=== PATIENT | female | born 1985 | race Caucasian/White ===

== ENCOUNTER 2016-10-17 09:00 | Inpatient (IN) | payer OTHER ==
[~2016-10-17] VITALS: Ht 170.2 cm; Wt 65.3 kg
--- NOTE | ~2016-10-17 | HP ---
Unit #: [id number] #: [id number] Patient: DAGO HAWTHORNE [id number] [facility] [address] [place] [address] [id number] MR#: [id number] NAME: DAGO HAWTHORNE ROOM: [facility] Age: 31 Sex: F Admission Date: 10/17/2016 : 1985 Attending Physician: Ulices Romo M.D. Admitting Physician: Ulices Romo M.D. Primary Care Physician: Generic Doctor Not In System HISTORY AND PHYSICAL HISTORY AND PHYSICAL COMPLETED 10/17/2016. HISTORY OF PRESENT ILLNESS Dago is a 31 female, who is currently transitioning to male. He is admitted for detox from alcohol. PAST MEDICAL HISTORY Gender transition. PAST SURGICAL HISTORY Bilateral mastectomies. SOCIAL HISTORY Smokes one-to-two cigarettes per day, drinks a half of a fifth of alcohol daily, no illegal drug use. He is currently single and living with his girlfriend. FAMILY HISTORY Noncontributory. REVIEW OF SYSTEMS CONSTITUTIONAL: No fever or chills. HEENT: Denies any sore throat, ear pain or runny nose. CARDIOVASCULAR: Denies chest pain, irregular heart rhythm or palpitations. CHEST: Denies shortness of breath or cough. No hemoptysis. GASTROINTESTINAL: Denies nausea, vomiting, diarrhea or chronic constipation. ENDOCRINE: Denies history of increased thirst or urination. No recent significant weight loss or gain. GENITOURINARY: Denies dysuria, frequency, or hematuria. SKIN: Denies any rashes. HEMATOLOGIC: Denies history of increased bleeding or bruising. MUSCULOSKELETAL: Denies any hot, swollen joints. No generalized muscle pain. NEUROLOGIC: Denies problems with vision or speech. No frequent, severe headaches. No numbness, tingling or weakness in any extremities. Denies loss of bladder or bowel control. CURRENT MEDICATIONS None. ALLERGIES Unit #: [id number] #: [id number] Patient: DAGO HAWTHORNE None. PHYSICAL EXAMINATION GENERAL: Alert, oriented, and in no acute distress. VITAL SIGNS: Blood pressure 143/92, heart rate 87, respirations 18, and temperature 98.5. HEIGHT: 5 feet 7 inches. WEIGHT: 144 pounds. SKIN: Warm and dry without rash or lesion. HEENT: Normocephalic. TMs not viewed. Oral and nasal passages clear. Conjunctivae clear. PERRLA. EOMs intact. NECK: Supple without lymphadenopathy or thyromegaly. HEART: Regular rate and rhythm without murmur. LUNGS: Clear. ABDOMEN: Soft, nontender. : Not done. EXTREMITIES: No evidence of cyanosis, clubbing or edema. Moves all without focal deficit. NEUROLOGICAL: Grossly within normal limits. Cranial Nerves: II: Visual aguirre are intact. III, IV AND : Extraocular movements are intact. Pupils are equal, round and reactive to light. V: Facial sensation is grossly normal. VII: Facial movements and expression are normal. VIII: Auditory acuity grossly intact. IX, X: Uvula is midline. Phonation is normal. XI: Patient shrugs shoulders and turns head normally. XII: Tongue protrudes in the midline. Sensory and Motor Function: Sensory and motor sensation is grossly normal. Motor: moves all extremities well. Coordination: Gait is normal. Deep Tendon Reflexes: Intact. IMPRESSION 1. Psychiatric admission. 2. Gender transition. RECOMMENDATIONS Psychiatric, per psychiatrist. MEDICAL No contraindications to participating in facility's activities. MEDICAL PROGNOSIS Good. MEDICAL CONDITION Stable. Dictated by... Simon García/chiqui TD: 10/18/2016 06:10 JOB #: [id number] Unit #: [id number] #: [id number] Patient: DAGO HAWTHORNE HISTORY AND PHYSICAL Page 1 of 1 X VILMA BARRY APRN X HISTORY AND PHYSICAL
--- NOTE | ~2016-10-17 | DS ---
Unit #: [id number] #: [id number] Patient: MALIKA HAWTHORNE [id number] [facility] [address] [place] [address] [id number] I MR#: [id number] NAME: MALIKA HAWTHORNE ROOM: [facility] Age: 31 Sex: F Admission Date: 10/17/2016 : 1985 Discharge Date: 10/18/2016 Attending Physician: Ulices Romo M.D. Primary Care Physician: Generic Doctor Not In System DISCHARGE SUMMARY REASON FOR ADMISSION Alcohol abuse and alcohol withdrawal. DIAGNOSTIC STUDIES LABORATORY RESULTS: Remarkable for AST 255, ALT 288. Platelet 107. HOSPITAL COURSE The patient was admitted to inpatient unit on 10/17/2016 and discharged on 10/18/2016 against medical advice. The patient is still having withdrawal symptoms. The patient was explained, but the patient wanted to be discharged. The patient is not holdable at this time. The patient denied any suicidal or homicidal ideation. Denied any psychotic symptom, wanted to follow up on the outpatient basis. Subsequently, the patient was discharged against medical advice. DISCHARGE MEDICATIONS None. DISCHARGE DIAGNOSES Psychiatric: Alcohol use disorder, severe, F10.20; mood disorder, not otherwise specified, F32.9. Secondary diagnosis: Deferred. Medical diagnosis: None. Stressors: Psychosocial stressors. DISCHARGE INSTRUCTIONS The patient to follow up in outpatient clinic as per social work job titles. CONDITION ON DISCHARGE The patient was pleasant, but denied any suicidal or homicidal ideation. PROGNOSIS Guarded. DIET AND ACTIVITY As tolerated. Dictated by... Ulices Romo M.D. Unit #: [id number] #: [id number] Patient: MALIKA HAWTHORNE SZC/modl TD: 10/18/2016 20:54 JOB #: [id number] DISCHARGE SUMMARY Page 1 of 1 X Ulices Romo MD X DISCHARGE SUMMARY
--- NOTE | ~2016-10-17 | PA ---
Unit #: [id number] #: [id number] Patient: DAGO HAWTHORNE [id number] [facility] [address] [place] [address] [id number] I MR#: [id number] NAME: DAGO HAWTHORNE ROOM: [facility] Age: 31 Sex: F Admission Date: 10/17/2016 : 1985 Date of Assessment: Attending Physician: Ulices Romo M.D. Admitting Physician: Ulices Romo M.D. Primary Care Physician: Generic Doctor Not In System PSYCHIATRIC ASSESSMENT INFORMANTS The patient reliability, fair informant and chart reliability, good. CHIEF COMPLAINT Alcohol detox. HISTORY OF PRESENT ILLNESS Dago is a 31-year-old male, likes to be called Dago, reported detoxing from alcohol. The patient stated that last night he consumed about a fifth of vodka. The patient stated that he has been consuming about half a fifth for the past 4 months. The patient stated that he has been struggling with alcohol for about 2 years and stated that he was in treatment for alcohol for 30 days in [place], [place]. The patient noticed increase in drinking. The patient has some college. Lives with his girlfriend and supportive environment. The patient stated that he is a transgender. The patient stated that he has to see a doctor for testosterone shots and in addition to see a therapist. The patient has a strained relationship with his ex-girlfriend. The patient denied use of any illicit drugs. Needing inpatient admission at this time for psychiatric stabilization. PAST PSYCHIATRIC HISTORY Unremarkable for any history of any previous treatment inpatient or outpatient. No history of any suicide attempt. FAMILY HISTORY AND SOCIAL HISTORY The patient has a good support system from girlfriend. No history of abuse. No legal problems. MEDICAL HISTORY Unremarkable for any chronic medical illness. Musculoskeletal; muscle strength and tone, no atrophy or abnormal movement. Gait normal. MEDICATION HISTORY None. ALLERGIES No known drug allergies. SUBSTANCE ABUSE HISTORY The patient reported tobacco use, age of onset 21; alcohol, age of onset 21; and marijuana, age of onset 21. The patient reported history of blackout. No history of HIV, hepatitis, or any IV drug abuse, currently Unit #: [id number] #: [id number] Patient: DAGO HAWTHORNE having withdrawal symptoms such as abdominal cramping, muscle cramping, diarrhea, depressed mood, poor concentration, and restlessness. REVIEW OF SYSTEMS HEENT: Eyes, clear. Ears, nose, mouth, and throat; clear. CARDIOVASCULAR: Unremarkable. RESPIRATORY: Unremarkable. GI: Unremarkable. : Unremarkable. SKIN: Unremarkable. LYMPH NODE: Unremarkable. NEUROLOGIC: Unremarkable. ENDOCRINE: Unremarkable. HEMATOLOGIC: Unremarkable. ALLERGIC/IMMUNOLOGIC: Unremarkable. MUSCULOSKELETAL: Muscle strength and tone, no atrophy or abnormal movement. Gait normal. MENTAL STATUS EXAMINATION CONSTITUTIONAL: Measurement of vital signs; temperature 98.5, heart rate 96, respiratory rate 18, and blood pressure 131/87. Height 5 feet 7 inches and weight 144 pounds. GENERAL APPEARANCE: The patient dressed casually. The patient did not show any facial deformity. MUSCULOSKELETAL: Please see above. PSYCHIATRIC EXAMINATION Description of speech; regular rate, normal volume, normal articulation, coherent. Description of thought process, goal directed. Description of association, intact. Description of abnormal psychotic thinking; the patient denied any hallucination, but sad, depressed, and substance abuse. Description of the patient's judgment: Concerning everyday activity, poor. Social situation, poor. Concerning psychiatric condition, poor. Complete mental status examination; oriented in time, place, and person. Recent and remote memory, fair. Attention span and concentration, fair. Language, able to name object and repeat phrases. Fund of knowledge, aware of current event and passive vocabulary intact. Mood and affect, sad and dysphoric. Insight and judgment, fair to poor. ASSETS AND LIABILITIES Assets, the patient is articulate and able to take care of his ADL. Liability, history of substance abuse and depression. ADMITTING DIAGNOSES Psychiatric: Alcohol use disorder, severe, F10.20 and mood disorder, not otherwise specified, F32.9. Secondary diagnosis: Deferred. Medical diagnosis: None. Stressors: Psychosocial stressor. PSYCHIATRIC PLAN AND TREATMENT GOAL AND DISCHARGE PLAN 1. Advised to admit the patient on the inpatient unit. Provide safe, supportive, and structured environment. 2. Ordered labs; CBC, CMP, UA, and UDS. Unit #: [id number] #: [id number] Patient: DAGO HAWTHORNE 3. Detox protocol and detox monitoring. The patient to attend all the programing, group therapy, individual therapy, and chemical dependency group. If needed, consider further adjustment of medication. TREATMENT GOAL To attain euthymic mood, gain insight into his problem, and learn coping skills. DISCHARGE PLAN Plan to stabilize the patient and consider followup in outpatient program. ESTIMATED LENGTH OF STAY 3 to 5 days. Dictated by... Ulices Romo M.D. LAINE/clarence TD: 10/18/2016 14:53 JOB #: [id number] PSYCHIATRIC ASSESSMENT Page 1 of 1 X Ulices Romo MD X PSYCHIATRIC ASSESSMENT
[2016-10-18 09:41] LABS: BASOPHIL% 0.9 % (0-2.5); EOSINOPHIL# 0.1 X10e3 (0-0.7); EOSINOPHIL% 1.5 % (0.0-7.0); HEMATOCRIT 39.9 % (35.0-45.0); HEMOGLOBIN 13.3 gm/dL (12.0-16.0); LYMPHOCYTE# 0.9 X10e3 (1.0-3.5); LYMPHOCYTE% 15.6 % (17.0-45.0); MEAN CELL VOLUME 95.3 FL (83-96); MEAN CORPUSCULAR HEMOGLOBIN 31.7 PG (28-34); MEAN CORPUSCULAR HGB CONC 33.3 g/dL (30-36); MEAN PLATELET VOLUME 8.1 FL (6.5-11.5); MONOCYTE# 0.6 X10e3 (0-1.0); PLATELET COUNT 107 X10e3 (140-420); RED BLOOD COUNT 4.18 X10e (3.90-5.30); RED CELL DISTRIBUTION WIDTH 13.7 % (11.0-15.5); WHITE BLOOD COUNT 5.6 X10e3 (4.0-10.5)
[2016-10-18 09:55] LABS: DIFF IND NO
[2016-10-18 09:59] LABS: ALBUMIN SERUM 3.9 g/dL (3.5-5.0); BILIRUBIN,TOTAL 1.1 mg/dL (0.2-2.0); BUN/CREATININE RATIO 16.66; CALCIUM SERUM 9.4 mg/dL (8.4-10.2); CREATININE SERUM 0.9 mg/dL (0.6-1.4); GLOM FILT RATE Estimated 85.3 mL/min (>60); POTASSIUM 3.5 mmol/L (3.5-5.1); PROTEIN TOTAL SERUM 6.4 g/dL (6.0-8.3)
[2016-10-18 10:00] LABS: URINE APPEARANCE CLEAR; URINE BLOOD NEG (NEG); URINE COLOR DK YELLOW; URINE GLUCOSE NEG (NEG); URINE KETONE 2+ (NEG); URINE LEUKOCYTE ESTERASE TRACE (NEG); URINE NITRATE NEG (NEG); URINE PH 6.5 (5-8); URINE PROTEIN 1+ (NEG); URINE SPECIFIC GRAVITY 1.033 (1.003-1.035)
[2016-10-18 10:23] LABS: URBCS1 AUWI 0-2 /[HPF] (0-2); URINE BACTERIA AUWI N (NEGATIVE); URINE BILIRUBIN NEG (NEG); URINE SQUAMOUS EPITHELIAL CELL FEW /[HPF]; UWBCS1 AUWI 0-2 (0-5)
[2016-10-18 10:42] LABS: AMPHETAMINE NEG (NEG); BARBITURATES NEG (NEG); BENZODIAZEPINES NEG (NEG); COCAINE NEG (NEG); MARIJUANA NEG (NEG); OPIATES NEG (NEG); TRICYCLIC ANTIDEPRESSANTS NEG (NEG); U METHADONE NEG (NEG)
== END 2016-10-18 15:10 | disposition left against medical advice (07) | DRG 894 ==
LOC: P1E 11:05
PROVIDERS: Psychiatry & Neurology Psychiatry
PROC: HZ2ZZZZ Detoxification Services for Substance Abuse Treatment (ICD-10-PCS; principal; 2016-10-17)
DX: F10.230 Alcohol dependence with withdrawal, uncomplicated (principal); F39 Unspecified mood [affective] disorder; Z90.13 Acquired absence of bilateral breasts and nipples; F17.210 Nicotine dependence, cigarettes, uncomplicated
CPT/HCPCS: 80053; 80307; 81003; 85025; 86592